=== PATIENT | female | born 1945 | race Caucasian/White ===

== ENCOUNTER → 2021-03-11 | Day surgery (SDC) | payer MEDICARE, BC ==
[~2021-03-11] VITALS: Ht 170.2 cm; Wt 85.0 kg
[~2021-03-11] MED LIST: ACET500T33 PO; ACET500T68 PO; AMLO-186 PO; AMLO-187 PO; HYDR-3164 PO; HYDROmorphone 2 MG/ML VIAL IVP PRN; IV RINGERS,LACTATED 1000ML 1,000 ML IV SCH; LACT1CAP6 PO; LEVO88TA4 PO; LIDOCAINE 2% PF 5 ML VIAL. ONE; LISI-517 PO; LORA0.5T PO; LORA10TA68 PO; MORPHINE SULFATE 2 MG/ML INJ. IVP PRN; OXYM30SP72 NS; PROCHLORPERAZINE 10 MG/2 ML VIAL. IVP PRN; PROP10DR4 OP; PROP15DR EACHEYE; PROPOFOL 10 MG/ML (20ML) VIAL. IV ONE; SERT50TA PO; ePHEDrine PF IN SALINE 50 MG/10 ML SYRINGE. IV ONE; fentaNYL PF VIAL 100 MCG/2 ML VIAL IVP PRN
[2021-03-11 10:09] VITALS: BP 137/66
[2021-03-11 11:56] VITALS: BP 135/74
--- NOTE | 2021-03-12 17:10 | PATHOLOGY ---
[facility] Accession Number: [id number] . 01 Material submitted: . rectum - RECTAL POLYP BX'S . 01 Clinical history: . CRC SCREEN COLONOSCOPY . 02 Diagnosis: Colorectal biopsies, rectal polyps: - Hyperplastic polyps. ([facility]; 03/12/2021) S 03/12/2021 0907 Local . 02 Comment: There are no adenomatous changes or evidence of malignancy. ([facility]; 03/12/2021) . 02 Electronically signed: . Catrachito Lord MD, Pathologist NPI- [id number] . 01 Gross description: . The specimen is submitted in formalin, labeled "Tamica Fernandez, rectal polyps biopsy". Received are multiple segments of pale lemos tissue admixed with vegetable material measuring 1.4 x 0.5 x 0.2 cm in aggregate dimensions. The specimen is filtered and entirely submitted in cassette A1. ([facility]; 03/11/2021) NRI/NRI 03/11/2021 2204 Local . 02 Pathologist provided ICD-10: K62.1 . 02 CPT . 606864 Specimen Comment: A courtesy copy of this report has been sent to [phone], [phone] Specimen Comment: [phone] Specimen Comment: Report sent to / DR EVANS Performed at: 01 [facility] [address], [place] [id number] MD Jero Salazar MD Phone: [phone] Performed at: 02 [facility] [address], [place] [id number] MD Catrachito Lord MD Phone: [phone]
== END ==
LOC: SURG 09:33
PROVIDERS: ATTEND Internal Medicine Gastroenterology
DX: K59.00 Constipation, unspecified (principal); K62.1 Rectal polyp; K64.0 First degree hemorrhoids; K57.30 Diverticulosis of large intestine without perforation or abscess without bleeding; I10 Essential (primary) hypertension; E03.9 Hypothyroidism, unspecified; F41.9 Anxiety disorder, unspecified; F32.9 Major depressive disorder, single episode, unspecified; E78.00 Pure hypercholesterolemia, unspecified; M19.90 Unspecified osteoarthritis, unspecified site; F17.210 Nicotine dependence, cigarettes, uncomplicated; Z87.440 Personal history of urinary (tract) infections; Z86.010 Personal history of colon polyps; Z79.899 Other long term (current) drug therapy; Z90.49 Acquired absence of other specified parts of digestive tract; Z98.890 Other specified postprocedural states
CPT/HCPCS: 45380; J2704; 88305